=== PATIENT | male | born 1970 | race African-American/Black ===

== ENCOUNTER 2016-10-30 23:46 | Observation (INO) | payer OTHER ==
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
[2016-10-31] MEDS ORDERED: ASPIRIN (CHEWABLE) 81 MG TAB PO ONE (00:40)
[2016-10-31 01:09] LABS: MPV 7.9 fL (7.4-10.4)
[2016-10-31 01:14] LABS: BLOOD UREA NITROGEN 14 MG/DL (9-20); CALCIUM 9.9 MG/DL (8.4-10.2); CALCULATED OSMOLALITY 277 MOs/Kg (270-290); CHLORIDE 100 mEq/L (98-107); GLUCOSE 229 MG/DL (70-99); SODIUM LEVEL 140 mEq/L (137-146); TOTAL PROTEIN 7.1 G/DL (6.3-8.2)
[2016-10-31 01:15] LABS: PARTIAL THROMB. TIME 24.6 SEC (22-35)
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
[2016-10-31 01:38] LABS: SEG NEUTROPHIL 58 % (45-76)
[2016-10-31 01:39] LABS: TOTAL CELL COUNT 100
--- NOTE | 2016-10-31 02:15 | DIRPT ---
CLINICAL DATA: 46-year-old male with left shoulder pain EXAM: PORTABLE CHEST 1 VIEW COMPARISON: Radiograph dated 05/31/2015 FINDINGS: The heart size and mediastinal contours are within normal limits. Both lungs are clear. The visualized skeletal structures are unremarkable. IMPRESSION: No active disease. Electronically Signed By: Jw Johnson M.D. On: 10/31/2016 02:13
[2016-10-31] MEDS ORDERED: NITROGLYCERINE 0.4 MG TAB SL PRN (02:41)
[2016-10-31] MEDS ORDERED: METOPROLOL 5 MG/5 ML SDV IV ONE (02:41)
[2016-10-31] MEDS ORDERED: BENZONATATE 100 MG PERLES PO PRN (02:45)
[2016-10-31] MEDS ORDERED: BISACODYL 5 MG TAB PO PRN (02:45)
[2016-10-31] MEDS ORDERED: SIMETHICONE 80 MG TAB PO PRN (02:45)
[2016-10-31] MEDS ORDERED: SENNA CONCENTRATE TAB PO PRN (02:45)
[2016-10-31] MEDS ORDERED: PROMETHAZINE 25 MG/ML VIAL IV PRN (02:45)
[2016-10-31] MEDS ORDERED: TEMAZEPAM 15 MG CAP PO PRN (02:45)
[2016-10-31] MEDS ORDERED: ACETAMINOPHEN 325 MG SUPP PR PRN (02:45)
[2016-10-31] MEDS ORDERED: GUAIFEN 100 MG-DEXTROMETH 10 MG PER 5 ML PO PRN (02:45)
[2016-10-31] MEDS ORDERED: ACETAMINOPHEN 325 MG/TAB TABLET PO PRN (02:45)
[2016-10-31] MEDS ORDERED: ONDANSETRON HCL 4 MG/2 ML VIAL IV PRN (02:45)
[2016-10-31] MEDS ORDERED: MORPHINE 2 MG/ML INJECTION IV PRN (02:45)
[2016-10-31] MEDS ORDERED: Docusate Sodium 100 MG CAP PO PRN (02:45)
[2016-10-31] MEDS ORDERED: ENOXAPARIN 40 MG/0.4 ML PFS SQ SCH (03:00)
[2016-10-31] MEDS ORDERED: Pharmacy Order Set Alert SCH (03:00)
[2016-10-31] MEDS ORDERED: ENOXAPARIN 60 MG/0.6 ML PFS SQ SCH (03:30)
[2016-10-31] MEDS ORDERED: Vaccine Screening Complete SCH (04:00)
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
[2016-10-31 04:47] VITALS: BMI 31.8
[2016-10-31 07:32] LABS: LDL (calc.) 107.6 MG/DL (<100); VLDL (calc.) 23.4 MG/DL (5-40)
[2016-10-31] MEDS ORDERED: ASPIRIN 325 MG TAB PO SCH (08:00)
[2016-10-31] MEDS ORDERED: SESTAMIBI 8 MCI V IV ONE (10:15)
[2016-10-31 11:07] VITALS: BP 133/84; TEMP 98.3
[2016-10-31] MEDS: CARVEDILOL 3.125 MG TAB PO SCH ×2 (11:13→11:14)
--- NOTE | 2016-10-31 14:38 | DIRPT ---
CLINICAL DATA: Chest pain EXAM: NUCLEAR MEDICINE CARDIOLITE Lenny protocol RESTING/STRESS TECHNIQUE: Cardiolite stress test Lenny protocol RADIOPHARMACEUTICALS: Eight in 25 millicuries TC 99 M Cardiolite COMPARISON: None. FINDINGS: A Cardiolite cardiac stress test Lenny protocol was performed. The stress portion of the test was supervised by doctor Ndiaye. I reviewed the images with him. There is no evidence of ischemia or scar. Inferior wall diaphragmatic attenuation is noted. Normal wall motion and contractility. Left ventricle ejection fraction is 45%. IMPRESSION: There is no evidence of ischemia or scar. Inferior wall diaphragmatic attenuation is noted. Normal wall motion and contractility. Left ventricle ejection fraction is 45%. Electronically Signed By: Masood Abdi M.D. On: 10/31/2016 14:35
--- NOTE | 2016-10-31 14:59 | CAPUEKG ---
[place], [place] Test Date: 2016-10-31 Pat Name: TRISTA MORRISON Department: Room: 451 Gender: Male Decorator Consultant: : Requested By: Order Number: Reading MD: Bronson Ndiaye MD Measurements Intervals Eek Rate: 59 P: 67 GA: 160 QRS: -13 QRSD: 86 T: -10 QT: 400 QTc: 396 Interpretive Statements Sinus bradycardia Otherwise normal ECG Electronically Signed On 10-31-16 14:58:43 EST by Bronson Ndiaye MD [id number]> [id number]
[2016-10-31 15:19] VITALS: PULSE 70
--- NOTE | 2016-10-31 15:54 | PCM.STRESS ---
This is a treadmill stress Cardiolite test. The resting heart rate and blood pressure, 60 beats per minute and 140/100. The peak heart rate and blood pressure 142 beats per minute 180/92. The resting EKG shows sinus rhythm and is normal. Stress EKG is normal to 82% of maximum predicted heart rate The patient was stressed by the Lenny protocol 3 minutes 30 seconds stage III achieving 82% of maximum predicted heart rate and 10.4 Mets. The blood pressure response is normal. Baseline hypertension is present. The rhythm is sinus, there is no arrhythmia. The exercise tolerance is normal. Symptoms present included fatigue, there is no chest pain. The radiologist will generate the Cardiolite image report.
--- NOTE | 2016-10-31 16:05 | PCM.DCS92 ---
- Final/Secondary Discharge Diagnosis (1) Atypical chest pain Acute R07.89 - OTHER CHEST PAIN Present on Admission: Yes (2) Dyspnea Acute R06.00 - DYSPNEA, UNSPECIFIED Present on Admission: Yes shortness of breath R06.02 - Shortness of breath (3) Left arm pain Acute M79.602 - PAIN IN LEFT ARM Present on Admission: Yes (4) Type 2 diabetes mellitus with hyperglycemia Acute E11.65 - TYPE 2 DIABETES MELLITUS WITH HYPERGLYCEMIA Present on Admission: Yes without air director use E11.65 - Type 2 diabetes mellitus with hyperglycemia Discharge Disposition: Home Discharge Condition: Stable Cognitive Discharge Status: Unimpaired Fuctional Discharge Status: Independent Physician Follow up/Referrals: Nba Pitts MD [Primary Care Provider] - One Week New Prescriptions: Albuterol Sulfate [Proventil Hfa] 1 - 2 puff INH Q4H PRN #1 hfa.aer.ad PRN Reason: Shortness Of Breath Carvedilol [Coreg] 6.25 mg PO BID #60 tablet Glimepiride [Amaryl] 4 mg PO BID #60 tablet Ibuprofen Tablet [Motrin] 800 mg PO Q8H PRN #100 tablet PRN Reason: Pain Insulin Glargine [Lantus Pen] 20 units SQ HS #1 pen Sitagliptin Phosphate [Januvia] 100 mg PO DAILY #30 tab Tizanidine [Zanaflex] 4 mg PO Q6H PRN #120 tablet PRN Reason: Pain Discharge Home Medication List Metformin HCl 1,000 mg PO BID 11/30/14 [History Confirmed 10/31/16 Last Taken ] Albuterol Sulfate [Proventil Hfa] 1 - 2 puff INH Q4H PRN #1 hfa.aer.ad 10/31/16 [Rx Last Taken Unknown] Carvedilol [Coreg] 6.25 mg PO BID #60 tablet 10/31/16 [Rx Last Taken Unknown] Glimepiride [Amaryl] 4 mg PO BID #60 tablet 10/31/16 [Rx Last Taken Unknown] Ibuprofen Tablet [Motrin] 800 mg PO Q8H PRN #100 tablet 10/31/16 [Rx Last Taken Unknown] Insulin Glargine [Lantus Pen] 20 units SQ HS #1 pen 10/31/16 [Rx Last Taken Unknown] Sitagliptin Phosphate [Januvia] 100 mg PO DAILY #30 tab 10/31/16 [Rx Last Taken Unknown] Tizanidine [Zanaflex] 4 mg PO Q6H PRN #120 tablet 10/31/16 [Rx Last Taken Unknown] O2 Device: Room Air Diet at Discharge: Heart Healthy, Diabetic, 2200 Calorie Activity: As Tolerated Call Office For: Worsening Symptoms Discontinue use of:: Alcohol, All Types of Tobacco - DC Summary Notes Hospital Course Note:: Discharge summary on patient named TRISTA MORRISON admitted to [facility] on 10/31/16 by Almas Garcia MD. Date of discharge is []. The patient is a 46 yo man who presents with neck pain and other pain. He returned home from [place] today, and he ate something and took his meds and around 10 pm started having a pain from his left neck through to the left arm. It went all the way to his fingers. The pain never went away. Also had some wheezing but the breathing treatment x 1 made it resolve. In the emergency room it would come and go. Onset: tonight. Duration: intermittent. Location: started in the left neck and then went down his shoulder to left arm. Radiation: left shoulder and arm. Character: 7/10. Sharp and stabbing. Also throbbing. Would come back q 20 seconds. Alleviated by: Nothing. Exacerbated by: Nothing. Associated Symptoms: Shortness of breath. Wheezing (resolved). No diaphoresis. No nausea or abdominal pain. No chest pain or palpitations. Minor headache with some pain on the posterior right side also. Left arm: numbness in 4th and 5th fingers on left hand, but has resolved. Treatments: none at home except usual medications. Tried putting ice on arm and raising arm but it did not help. The patient was admitted to the chest pain center to rule out myocardial infarction. He had serial troponin done which were all normal. He was monitored on telemetry and placed on a beta-kalina. He received aspirin and a statin in addition to an BENEDICT inhibitor. His exercise Cardiolite stress test did not show any evidence of acute ischemia. He will be discharged home today on Coreg and is to continue his diabetes control. He should follow up with Dr. Pitts within 1 week. Total Time: 35 min Code: 38491 - Physical Exam Vital Signs: Last Vital Signs Temp 98.3 F 10/31/16 11:06 Pulse 70 10/31/16 15:00 Resp 18 10/31/16 11:06 BP 133/84 10/31/16 11:06 Pulse Ox 98 10/31/16 11:06 Oxygen Pulse Oxygen Saturation 98 O2 Device Room Air Oxygen Flow Rate Fraction of Inspired Oxygen ( FIO2) Constitutional: Alert (Awake), No apparent distress Oriented to: Time, Person, Place - HEENT Head: Normal ( normocephalic) Eye: Normal (PERRL, EOMI, Sclera white) Oropharynx: Normal (Pharynx:Moist without exudate,Gums-no swelling) Tympanic Membrane: Normal ENT EAC: Normal TMJ: Normal Nose: No Symptoms Reported (septum midline) - Respiratory/Cardiovascular Respiratory: Normal - CTA (BBS clear to auscultation without adventitious sounds ) Cardiovascular: Normal (RRR without murmur, gallop or rub) - GI Auscultation: Normal (NABS) Palpation: Normal (Soft,No rebound or guarding, non distended) Tenderness: Non tender Connor's Sign: Negative Rectal Exam: Deferred - Musculoskeletal Back: Normal (Non-Tender) Extremities: Normal (Normal tone, Pulses 2+ No cyanosis or edema, FROM) - Integumentary Skin: Normal, Warm, Dry Lymphatics: Normal (no adenopathy) - Neurologic Memory Impaired: Normal Motor Function: Normal Cranial Nerve: Normal Cerebellar: Normal Mood Description: Normal Thought: Coherent Perception: Normal
== END 2016-10-31 17:51 | disposition home or self-care (01) ==
LOC: ED 23:46 → PCU 10-31 02:40
PROVIDERS: ADMIT Internal Medicine; ATTEND Family Medicine
DX: R07.89 Other chest pain (principal); R06.00 Dyspnea, unspecified; M79.602 Pain in left arm; E11.65 Type 2 diabetes mellitus with hyperglycemia; I10 Essential (primary) hypertension; J45.20 Mild intermittent asthma, uncomplicated; Z79.4 Long term (current) use of insulin; Z79.899 Other long term (current) drug therapy
CPT/HCPCS: 36415; 71010; 72050; 78452; 80053; 80061; 84484; 85007; 85027; 85610; 85730; 93005; 93017; 96372; 99283; A9500; G0378; J1650; J3490